=== PATIENT | male | born 1970 | race Two or more races ===

== ENCOUNTER 2016-12-19 15:58 | Emergency (ER) | payer OTHER ==
--- NOTE | 2016-12-19 17:17 | UC ---
Eye Complaint HPI - HPI Summary HPI Summary: 46 y/o male presents to the urgent care c/o Left eye pain since Monday. Pt states his left eyelid is painful 4/10 at touch w/ mild swelling. Pt denies fever, visual disturbance, STALLWORTH, SOB, chest pain, N/V/D. Pt has not other complains - History of Current Complaint Chief Complaint: UCEye Stated Complaint: EYE IRRITATION Time Seen by Provider: 12/19/16 17:08 Hx Obtained From: Patient Onset/Duration: Gradual Onset, Lasting Days Timing: Constant Severity Initially: Mild Severity Currently: Moderate Pain Intensity: 4 Pain Scale Used: 0-10 Numeric Location of Injury: Eye Lid (upper) - Left lateral side corner of eyelid Character: Dull Aggravating Factor(s): Blinking Alleviating Factor(s): Nothing Associated Signs And Symptoms: Positive: Negative, Swelling. Negative: Drainage (Clear), Drainage (Purulent), Vision Impairment Bilateral - Risk Factors Penetrating Injury Risk Factor: Negative Acute Glaucoma Risk Factors: Negative Optic Artery Occlusion Risk Factors: Negative - Allergies/Home Medications Allergies/Adverse Reactions: Allergies Allergy/AdvReac Type Severity Reaction Status Date / Time Rosuvastatin [From Crestor] Allergy GI Upset Verified 09/03/13 02:52 PMH/Surg Hx/FS Hx/Imm Hx Previously Healthy: Yes Endocrine History: Diabetes Other Endocrine History: GOUT Cardiovascular History: Myocardial Infarction Psychological History: Bipolar Disorder - Surgical History Surgical History: Yes Surgery Procedure, Year, and Place: Left forearm torn muscle repair 2010 - Family History Known Family History: Positive: Cardiac Disease, Diabetes - Social History Occupation: Employed Full-time Lives: With Family Alcohol Use: Weekly Alcohol Amount: 1-2 Substance Use Type: None Smoking Status (MU): Never Smoked Tobacco Have You Smoked in the Last Year: No - Immunization History Most Recent Influenza Vaccination: 2015 Most Recent Tetanus Shot: remote Most Recent Pneumonia Vaccination: 2013 Review of Systems Constitutional: Negative Skin: Negative Eyes: Other - Left upper eyelid with swelling and pain ENT: Negative Respiratory: Negative Cardiovascular: Negative Gastrointestinal: Negative Genitourinary: Negative Motor: Negative Neurovascular: Negative Musculoskeletal: Negative Neurological: Negative Psychological: Negative All Other Systems Reviewed And Are Negative: Yes Physical Exam Triage Information Reviewed: Yes Appearance: Well-Appearing, No Pain Distress, Well-Nourished Vital Signs: Initial Vital Signs Temp 98.4 F 12/19/16 16:29 Pulse 78 12/19/16 16:29 Resp 16 12/19/16 16:29 Pulse Ox 100 12/19/16 16:29 Vital Signs Reviewed: Yes Eye Exam: Normal Eyes: Positive: Conjunctiva Clear - PERRLA, EOMI, fundi grossly normal, Other: - Lateral aspect with a discrete pustule at the left eyelid margin. tender to palaption and midl swelling and redness of eyelid. ENT Exam: Normal ENT: Positive: Normal ENT inspection, Hearing grossly normal, Pharynx normal, TMs normal Dental Exam: Normal Neck exam: Normal Neck: Positive: Supple, Nontender, No Lymphadenopathy Respiratory Exam: Normal Respiratory: Positive: Chest non-tender, Lungs clear, Normal breath sounds Cardiovascular Exam: Normal Cardiovascular: Positive: RRR, No Murmur, Pulses Normal Abdominal Exam: Normal Abdomen Description: Positive: Nontender, No Organomegaly, Soft. Negative: CVA Tenderness (R), CVA Tenderness (L) Bowel Sounds: Positive: Present Musculoskeletal Exam: Normal Musculoskeletal: Positive: Strength Intact, ROM Intact, No Edema Neurological Exam: Normal Psychological Exam: Normal Skin Exam: Normal Eye Complaint Course/Dx - Course Course Of Treatment: 46 y/o male presents to the urgent care c/o Left eye pain since Monday12/17/2016. Pt states his left eyelid is painful 4/10 at touch w / mild swelling. Pt denies fever, visual disturbance, STALLWORTH, SOB, chest pain, N/V/ D. Hx obtained. PE abnormal findings: Lateral aspect with a discrete pustule at the left eyelid margin. tender to palaption and midl swelling and redness of eyelid. Pt Rx Bacitracin opthalmic ointment and advised to apply warm compresses with gentle massage. Advised if symptoms do not improve or worsen to f/u with his PCP or returnt to the clinic for further evaluation and treatmetn. Pt understood and agreed. - Differential Dx/Diagnosis Differential Diagnosis/HQI/PQRI: Conjunctivitis, Corneal Abrasion, Foreign Body , Other - hordeolum Provider Diagnoses: 1-Hordeolum of left eyelid Discharge - Discharge Plan Condition: Stable Disposition: HOME Prescriptions: Bacitracin OPHTH.OINT* 1 applic .SEE ORDER Q4HR #1 oint Patient Education Materials: Stye (ED) Referrals: Stanley Pierce DO [Primary Care Provider] - Additional Instructions: Please apply ophthalmic ointment in affected eye as directed. apply warm compresses and gentle massage the left area of the eye lid 4/day. If symptoms do not improve or worsen please f/u with your PCP or return to the urgent care for further evaluation and treatment.
[2016-12-19 17:27] VITALS: BP 128/85
== END 2016-12-19 17:43 | disposition home or self-care (01) ==
LOC: UCEAST 15:58
DX: H10.9 Unspecified conjunctivitis (principal); T15.02XA Foreign body in cornea, left eye, initial encounter; S00.252A Superficial foreign body of left eyelid and periocular area, initial encounter; H00.016 Hordeolum externum left eye, unspecified eyelid; E11.9 Type 2 diabetes mellitus without complications
CPT/HCPCS: 99212; G0463

== ENCOUNTER 2020-08-03 11:16 | Observation (INO) ==
[2020-08-03] MEDS ORDERED: Ondansetron 4 mg VIAL 2 MG/ML 2 ml VIAL IV ONE (11:44)
[2020-08-03 11:47] LABS: ABS Basophils 0.1 10^3/ul (0-0.2); ABS Eosinophils 0.2 10^3/ul (0-0.6); ABS Lymphocytes 2.4 10^3/ul (1.0-4.8); ABS Monocytes 0.7 10^3/ul (0-0.8); ABS Neutrophils 5.3 10^3/ul (1.5-7.7); Eosinophil % 1.8 %; Hematocrit 37 % (42-52); Lymphocyte % 27.9 %; Mean Corpuscular HGB Conc 32 g/dL (31-36); Mean Corpuscular Hemoglobin 29 pg (27-31); Mean Corpuscular Volume 90 fL (80-94); Mean Platelet Volume 7.6 fL (7.4-10.4); Platelet Count 243 10^3/uL (150-450); Red Blood Count 4.13 10^6 /uL (4.18-5.48); Red Cell Distribution Width 14 % (10-15); White Blood Count 8.6 10^3/uL (3.5-10.8)
[2020-08-03 12:22] LABS: Albumin 4.5 g/dL (3.2-5.2); Albumin/Globulin Ratio 2.1 (1-3); BUN/Creatinine Ratio 15.9 (8-20); Calcium 9.7 mg/dL (8.6-10.3); EGFR African American 65.7 (>60); EGFR Non-African American 54.3 (>60); Globulin 2.1 g/dL (2-4); Potassium 4.8 mmol/L (3.5-5.0); Total Bilirubin 0.4 mg/dL (0.2-1.0); Total Protein 6.6 g/dL (6.4-8.9)
[2020-08-03 13:17] LABS: Lithium 0.52 mmol/L (0.6-1.2)
[2020-08-03] MEDS ORDERED: Dextrose 50% Syringe 50 ml 25 GM/50 ML SYRINGE IV PUSH PRN (14:00)
[2020-08-03] MEDS ORDERED: Nitroglycerin 0.3 mg TAB SL PRN (14:19)
[2020-08-03] MEDS ORDERED: Al Hydrox/Mg Hydrox/Simet LIQ 30 ML UDC PO ONE (14:29)
[2020-08-03] MEDS ORDERED: hydrALAZINE 20 mg/ml 1 ML Vial IV IV SLOW PU ONE (14:53)
[2020-08-03 15:39] LABS: Magnesium 2.4 mg/dL (1.9-2.7)
[2020-08-03] MEDS ORDERED: CMCS: Lithium Carb ER 300 mg TAB(NF) PO SCH (21:00)
[2020-08-03] MEDS ORDERED: Insulin GLARGINE 100 un/ml 10 ml VIAL SUBCUT SCH (21:00)
[2020-08-04] MEDS ORDERED: hydrALAZINE 20 mg/ml 1 ML Vial IV IV SLOW PU ONE (01:46)
[2020-08-04] MEDS ORDERED: hydrALAZINE 20 mg/ml 1 ML Vial IV ONE (01:49)
[2020-08-04 05:32] LABS: ABS Eosinophils 0.2 10^3/ul (0-0.6); ABS Lymphocytes 2.3 10^3/ul (1.0-4.8); ABS Monocytes 0.7 10^3/ul (0-0.8); ABS Neutrophils 5.7 10^3/ul (1.5-7.7); Eosinophil % 1.9 %; Hematocrit 39 % (42-52); Hemoglobin 12.7 g/dL (14.0-18.0); Lymphocyte % 26.2 %; Mean Corpuscular HGB Conc 33 g/dL (31-36); Mean Corpuscular Hemoglobin 29 pg (27-31); Mean Corpuscular Volume 89 fL (80-94); Mean Platelet Volume 7.8 fL (7.4-10.4); Platelet Count 227 10^3/uL (150-450); Red Blood Count 4.33 10^6 /uL (4.18-5.48); Red Cell Distribution Width 14 % (10-15); White Blood Count 8.9 10^3/uL (3.5-10.8)
[2020-08-04 06:15] LABS: BUN/Creatinine Ratio 14.5 (8-20); Calcium 9.5 mg/dL (8.6-10.3); EGFR African American 58.8 (>60); EGFR Non-African American 48.6 (>60); Potassium 4.3 mmol/L (3.5-5.0)
[2020-08-04] MEDS ORDERED: Potassium Chlor 10 meq TAB PO SCH (09:00)
[2020-08-04] MEDS ORDERED: Cholecalciferol (VIT D3) 1,000 unit TAB PO SCH (09:00)
[2020-08-04 12:52] VITALS: BP 130/101
== END 2020-08-04 13:15 | disposition home or self-care (01) ==
LOC: ED 11:16 → MEDTELE 11:16
PROVIDERS: ADMIT Internal Medicine; ATTEND Internal Medicine

== ENCOUNTER 2022-01-20 14:16 | Inpatient (IN) ==
[2022-01-20] MEDS ORDERED: Ondansetron 4 mg VIAL 2 MG/ML 2 ml VIAL IV PRN (14:38)
[2022-01-20] MEDS ORDERED: Lactulose 30 ml UDC PO PRN (14:38)
[2022-01-20] MEDS ORDERED: Magnesium Hydroxide LIQ 30 ML UDC PO PRN (14:38)
[2022-01-20] MEDS ORDERED: Vancomycin per Pharmacy 1 EA NOTE FOLLOW UP SCH (15:00)
[2022-01-20 16:45] LABS: ABS Eosinophils 0.1 10^3/ul (0-0.6); ABS Lymphocytes 1.5 10^3/ul (1.0-4.8); ABS Monocytes 0.8 10^3/ul (0-0.8); ABS Neutrophils 4.4 10^3/ul (1.5-7.7); Eosinophil % 1.7 %; Hematocrit 39 % (42-52); Hemoglobin 12.5 g/dL (14.0-18.0); Lymphocyte % 22.2 %; Mean Corpuscular HGB Conc 32 g/dL (31-36); Mean Corpuscular Hemoglobin 28 pg (27-31); Mean Corpuscular Volume 87 fL (80-94); Mean Platelet Volume 7.2 fL (7.4-10.4); Platelet Count 224 10^3/uL (150-450); Red Blood Count 4.47 10^6 /uL (4.18-5.48); Red Cell Distribution Width 16 % (10-15); White Blood Count 6.8 10^3/uL (3.5-10.8)
[2022-01-20 16:58] LABS: Activated Partial Thrombo Time 35.8 seconds (26.0-38.0); INR 0.98 (0.89-1.11)
[2022-01-20] MEDS: Morphine 2 MG/ML SYRINGE IV PRN ×2 (17:07→21:40)
[2022-01-20] MEDS: Cefepime 2 GM in Dextrose 2 GM/50 ML BAG IV SCH (17:08)
[2022-01-20 17:12] LABS: C Reactive Protein 51.8 mg/L (<8.01); Calcium 10.3 mg/dL (8.6-10.3); Potassium 4.2 mmol/L (3.5-5.0); eGFR CKD-EPI 52.4 (>60)
[2022-01-20] MEDS ORDERED: Dextrose 50% Syringe 50 ml 25 GM/50 ML SYRINGE IV PUSH PRN (17:42)
[2022-01-20] MEDS ORDERED: hydrALAZINE 20 mg/ml 1 ML Vial IV IV SLOW PU PRN (17:58)
[2022-01-20] MEDS ORDERED: Vancomycin 1,500 MG in NS 0.9% 250 ml 250 ML IVPB ONE (18:00)
[2022-01-20 18:34] LABS: TSH Ultra Thyroid Stim Horm 25.67 mcIU/mL (0.34-5.60)
[2022-01-20] MEDS ORDERED: Heparin 5000 UNITS/ML 1 mL VIAL SUBCUT SCH (21:00)
[2022-01-20] MEDS: Pravastatin 20 mg TAB (NF) PO SCH (21:16)
[2022-01-20] MEDS: Magnesium Hydroxide LIQ 30 ML UDC PO SCH (21:23)
[2022-01-20 21:38] LABS: Erythrocyte Sed Rate 32 mm/Hr (0-19)
[2022-01-20] MEDS: CMCS: Lithium Carb ER 300 mg TAB(NF) PO SCH (21:40)
[2022-01-20] MEDS: Ondansetron ODT 4 mg TAB 4 MG TAB PO PRN (21:41)
[2022-01-21] MEDS ORDERED: Propofol 10 MG/ML 20 ML BTL IV SCH
[2022-01-21] MEDS ORDERED: Ondansetron 4 mg VIAL 2 MG/ML 2 ml VIAL IV SCH
[2022-01-21] MEDS ORDERED: Lidocaine 2% PF 10 ML AMP (OR) INJ SCH
[2022-01-21] MEDS ORDERED: Lidocaine 1% VIAL 10 MG/ML VIAL INJ SCH
[2022-01-21] MEDS ORDERED: fentaNYL 100 mcg/2 ml 50 MCG/ML VIAL IV SCH
[2022-01-21] MEDS ORDERED: Midazolam 2 mg/2 ml VIAL 1 mg/ml 2 ml VIAL (2 mg) IV SLOW PU SCH
[2022-01-21 05:28] LABS: ABS Eosinophils 0.2 10^3/ul (0-0.6); ABS Lymphocytes 1.8 10^3/ul (1.0-4.8); ABS Monocytes 0.7 10^3/ul (0-0.8); ABS Neutrophils 3.1 10^3/ul (1.5-7.7); Eosinophil % 3.2 %; Hematocrit 35 % (42-52); Hemoglobin 11.4 g/dL (14.0-18.0); Lymphocyte % 30.3 %; Mean Corpuscular HGB Conc 32 g/dL (31-36); Mean Corpuscular Hemoglobin 28 pg (27-31); Mean Corpuscular Volume 86 fL (80-94); Mean Platelet Volume 7.3 fL (7.4-10.4); Platelet Count 201 10^3/uL (150-450); Red Blood Count 4.11 10^6 /uL (4.18-5.48); Red Cell Distribution Width 16 % (10-15); White Blood Count 5.8 10^3/uL (3.5-10.8)
[2022-01-21] MEDS: Cefepime 2 GM in Dextrose 2 GM/50 ML BAG IV SCH ×2 (05:30→16:56)
[2022-01-21 05:59] LABS: C Reactive Protein 26.92 mg/L (<8.01); Calcium 9.4 mg/dL (8.6-10.3); eGFR CKD-EPI 59.1 (>60)
[2022-01-21] MEDS: Vancomycin 1,250 MG in NS 0.9% 250 ml 250 ML IVPB SCH ×2 (06:33→18:31)
[2022-01-21] MEDS ORDERED: Labetalol IV 5 MG/ML 20 ml VIAL IV PUSH ONE (08:46)
[2022-01-21] MEDS ORDERED: Naloxone 0.4 mg VIAL 0.4 mg/ml 1 ml VIAL IV PRN (09:12)
[2022-01-21] MEDS: Cholecalciferol (VIT D3) 1,000 unit TAB PO SCH (09:34)
[2022-01-21] MEDS: Vitamin THERAPEUTIC TAB PO SCH (09:35)
[2022-01-21] MEDS: Magnesium Hydroxide LIQ 30 ML UDC PO SCH ×2 (10:40→20:30)
[2022-01-21] MEDS: Lactated Ringers 1000 ml BAG 1,000 ML IV SCH ×2 (10:41→23:57)
[2022-01-21] MEDS: Ondansetron ODT 4 mg TAB 4 MG TAB PO PRN (11:54)
[2022-01-21] MEDS: Enoxaparin 40 MG/0.4 ML SYR SUBCUT SCH (18:31)
[2022-01-21] MEDS: Pravastatin 20 mg TAB (NF) PO SCH (20:31)
[2022-01-21] MEDS: CMCS: Lithium Carb ER 300 mg TAB(NF) PO SCH (20:32)
[2022-01-22] MEDS: Cefepime 2 GM in Dextrose 2 GM/50 ML BAG IV SCH ×2 (05:31→17:37)
[2022-01-22 05:37] LABS: ABS Eosinophils 0.2 10^3/ul (0-0.6); ABS Lymphocytes 2.4 10^3/ul (1.0-4.8); ABS Monocytes 0.6 10^3/ul (0-0.8); ABS Neutrophils 3.2 10^3/ul (1.5-7.7); Hematocrit 33 % (42-52); Hemoglobin 10.4 g/dL (14.0-18.0); Lymphocyte % 37.4 %; Mean Corpuscular HGB Conc 32 g/dL (31-36); Mean Corpuscular Hemoglobin 27 pg (27-31); Mean Corpuscular Volume 85 fL (80-94); Mean Platelet Volume 6.8 fL (7.4-10.4); Nucleated Red Blood Cells % 0.1; Platelet Count 190 10^3/uL (150-450); Red Blood Count 3.81 10^6 /uL (4.18-5.48); Red Cell Distribution Width 15 % (10-15); White Blood Count 6.3 10^3/uL (3.5-10.8)
[2022-01-22] MEDS ORDERED: Vancomycin Trough Check NOTE FOLLOW UP ONE (06:00)
[2022-01-22 06:02] LABS: C Reactive Protein 13.14 mg/L (<8.01); Calcium 8.9 mg/dL (8.6-10.3); Potassium 4.1 mmol/L (3.5-5.0); Vancomycin Trough 9.6 mcg/mL; eGFR CKD-EPI 53.2 (>60)
[2022-01-22] MEDS: Vancomycin 1,250 MG in NS 0.9% 250 ml 250 ML IVPB SCH ×2 (06:16→18:26)
[2022-01-22] MEDS: Cholecalciferol (VIT D3) 1,000 unit TAB PO SCH (08:00)
[2022-01-22] MEDS: Vitamin THERAPEUTIC TAB PO SCH (08:00)
[2022-01-22] MEDS: Magnesium Hydroxide LIQ 30 ML UDC PO SCH ×2 (08:34→22:15)
[2022-01-22 08:52] LABS: Erythrocyte Sed Rate 13 mm/Hr (0-19)
[2022-01-22] MEDS: Enoxaparin 40 MG/0.4 ML SYR SUBCUT SCH (16:47)
[2022-01-22] MEDS: Pravastatin 20 mg TAB (NF) PO SCH (22:11)
[2022-01-22] MEDS: CMCS: Lithium Carb ER 300 mg TAB(NF) PO SCH (22:20)
[2022-01-23] MEDS: Cefepime 2 GM in Dextrose 2 GM/50 ML BAG IV SCH ×2 (06:09→18:17)
[2022-01-23] MEDS: Vancomycin 1,250 MG in NS 0.9% 250 ml 250 ML IVPB SCH ×2 (06:58→18:55)
[2022-01-23 07:01] LABS: Albumin 4.2 g/dL (3.2-5.2); Albumin/Globulin Ratio 2.2 (1-3); Calcium 9.5 mg/dL (8.6-10.3); Globulin 1.9 g/dL (2-4); Potassium 4.4 mmol/L (3.5-5.0); Total Bilirubin 0.3 mg/dL (0.2-1.0); Total Protein 6.1 g/dL (6.4-8.9); eGFR CKD-EPI 54.5 (>60)
[2022-01-23] MEDS: Vitamin THERAPEUTIC TAB PO SCH (09:52)
[2022-01-23] MEDS: Cholecalciferol (VIT D3) 1,000 unit TAB PO SCH (09:52)
[2022-01-23] MEDS: Magnesium Hydroxide LIQ 30 ML UDC PO SCH ×2 (10:34→22:37)
[2022-01-23] MEDS: Enoxaparin 40 MG/0.4 ML SYR SUBCUT SCH (16:57)
[2022-01-23] MEDS: Pravastatin 20 mg TAB (NF) PO SCH (22:18)
[2022-01-23] MEDS: CMCS: Lithium Carb ER 300 mg TAB(NF) PO SCH (22:20)
[2022-01-24] MEDS: Cefepime 2 GM in Dextrose 2 GM/50 ML BAG IV SCH (05:41)
[2022-01-24 05:56] LABS: ABS Eosinophils 0.3 10^3/ul (0-0.6); ABS Lymphocytes 2.3 10^3/ul (1.0-4.8); ABS Monocytes 0.6 10^3/ul (0-0.8); ABS Neutrophils 4.2 10^3/ul (1.5-7.7); Eosinophil % 3.6 %; Hematocrit 37 % (42-52); Hemoglobin 11.7 g/dL (14.0-18.0); Mean Corpuscular HGB Conc 32 g/dL (31-36); Mean Corpuscular Hemoglobin 27 pg (27-31); Mean Corpuscular Volume 86 fL (80-94); Mean Platelet Volume 6.9 fL (7.4-10.4); Platelet Count 216 10^3/uL (150-450); Red Blood Count 4.27 10^6 /uL (4.18-5.48); Red Cell Distribution Width 16 % (10-15); White Blood Count 7.4 10^3/uL (3.5-10.8)
[2022-01-24 06:28] LABS: Albumin 4.1 g/dL (3.2-5.2); Albumin/Globulin Ratio 2.1 (1-3); C Reactive Protein 5.17 mg/L (<8.01); Calcium 9.5 mg/dL (8.6-10.3); Potassium 4.1 mmol/L (3.5-5.0); Total Bilirubin 0.4 mg/dL (0.2-1.0); Total Protein 6.1 g/dL (6.4-8.9); eGFR CKD-EPI 52.8 (>60)
[2022-01-24] MEDS: Vancomycin 1,250 MG in NS 0.9% 250 ml 250 ML IVPB SCH (06:29)
[2022-01-24] MEDS: Vitamin THERAPEUTIC TAB PO SCH (09:19)
[2022-01-24] MEDS: Cholecalciferol (VIT D3) 1,000 unit TAB PO SCH (09:19)
[2022-01-24] MEDS: Insulin GLARGINE 100 un/ml 10 ml VIAL SUBCUT SCH (09:20)
[2022-01-24] MEDS: Magnesium Hydroxide LIQ 30 ML UDC PO SCH ×2 (11:08→22:03)
[2022-01-24] MEDS: ceFAZolin 2 GM in NS PREMIX 2 GM/100 ML BAG IVPB SCH ×2 (12:48→22:31)
[2022-01-24] MEDS: Enoxaparin 40 MG/0.4 ML SYR SUBCUT SCH (17:36)
[2022-01-24] MEDS: CMCS: Lithium Carb ER 300 mg TAB(NF) PO SCH (21:57)
[2022-01-24] MEDS: Pravastatin 20 mg TAB (NF) PO SCH (22:00)
[2022-01-25] MEDS: ceFAZolin 2 GM in NS PREMIX 2 GM/100 ML BAG IVPB SCH ×2 (05:55→13:18)
[2022-01-25] MEDS ORDERED: Vancomycin Trough Check NOTE FOLLOW UP ONE (06:00)
[2022-01-25] MEDS: Magnesium Hydroxide LIQ 30 ML UDC PO SCH (08:48)
[2022-01-25] MEDS: Cholecalciferol (VIT D3) 1,000 unit TAB PO SCH (09:12)
[2022-01-25] MEDS: Vitamin THERAPEUTIC TAB PO SCH (09:13)
[2022-01-25] MEDS: Insulin GLARGINE 100 un/ml 10 ml VIAL SUBCUT SCH (09:14)
[2022-01-25 10:53] VITALS: BP 130/80
== END 2022-01-25 15:00 | disposition home or self-care (01) | DRG 316 ==
LOC: MED 15:51
PROVIDERS: ADMIT Orthopaedic Surgery; ATTEND Orthopaedic Surgery